=== PATIENT | male | born 1975 | race Caucasian/White ===

== ENCOUNTER 2017-06-15 08:49 | Day surgery (SDC) | payer BC ==
[~2017-06-15] VITALS: Ht 185.4 cm; Wt 102.1 kg
[~2017-06-15 08:49] MED LIST: LORTAB 5-325 M1 EACH PO; NAPROXEN500 MG PO; PREDNISONE50 MG PO; QUIN B STRONG1 EACH PO; SKELAXIN800 MG PO; SUPER B MAXI C0.4 MG PO; [UNRECOGNIZED DRUG - OTHER] PO
[2017-06-15 09:10] VITALS: BP 113/70
[2017-06-15] MEDS ORDERED: PERCOCET 5/31 TABLET PO (10:49)
[2017-06-15] MEDS ORDERED: COLACE100 MG PO (10:49)
[2017-06-15] MEDS ORDERED: RECTIV30 GM PR (10:54)
[2017-06-15] MEDS ORDERED: PROCTOSOL-HC28.35 GM PR (10:54)
[2017-06-15 12:30] VITALS: BP 120/79
[2017-06-15 13:45] VITALS: BP 115/66
[2017-06-15 15:40] VITALS: BP 117/70
== END 2017-06-15 15:45 | disposition home or self-care (01) ==
LOC: SDC 08:49
PROC: 0DJD7ZZ Inspection of Lower Intestinal Tract, Via Natural or Artificial Opening (ICD-10-PCS; principal; 2017-06-15)
PROC: 0DQQ0ZZ Repair Anus, Open Approach (ICD-10-PCS; principal; 2017-06-15)
PROC: 0DBQ7ZZ Excision of Anus, Via Natural or Artificial Opening (ICD-10-PCS; principal; 2017-06-15)
PROC: 3E0H7GC Introduction of Other Therapeutic Substance into Lower GI, Via Natural or Artificial Opening (ICD-10-PCS; principal; 2017-06-15)
DX: K60.1 Chronic anal fissure (principal); K60.3 Anal fistula; K59.00 Constipation, unspecified; K92.1 Melena; K64.8 Other hemorrhoids; K21.9 Gastro-esophageal reflux disease without esophagitis; Z87.891 Personal history of nicotine dependence
CPT/HCPCS: 88304; J0585; J0744; J1170; J2250; J2405; J2765; J3010; S0074